=== PATIENT | male | born 1995 | race Hispanic/Latino ===

== ENCOUNTER 2020-11-02 11:13 | Emergency (ER) | payer OTHER ==
[2020-11-02] MEDS ORDERED: L.E.T. GEL 4%/0.5%/0.18% 3ML 3 ML/SYR SYG TP ONE (12:28)
[2020-11-02] MEDS ORDERED: OCTYL 2-CYANOACRYLATE 1 EACH TP ONE (14:07)
[2020-11-02] MEDS ORDERED: IBUPROFEN 600 MG TABLET ONE (14:22)
[2020-11-02] MEDS ORDERED: ACETAMINOPHEN EXTRA STRENGTH 500 MG TABLET ONE (14:23)
== END 2020-11-02 14:40 | disposition home or self-care (01) ==
LOC: EDH 11:13
DX: S01.511A Laceration without foreign body of lip, initial encounter (principal); X58.XXXA Exposure to other specified factors, initial encounter; Y93.89 Activity, other specified; Y92.89 Other specified places as the place of occurrence of the external cause; Y99.8 Other external cause status
CPT/HCPCS: 12011; 70450; 70486